=== PATIENT | male | born 1970 | race African-American/Black ===

== ENCOUNTER 2018-08-09 04:06 | Emergency (ER) | payer SELFPAY ==
[~2018-08-09] VITALS: Ht 182.9 cm; Wt 96.0 kg
[2018-08-09] MEDS ORDERED: FAMOTIDINE 20MG/2ML VIAL IV STA (06:35)
[2018-08-09] MEDS ORDERED: ONDANSETRON 4MG ODT PO STA (06:35)
[2018-08-09] MEDS ORDERED: KETOROLAC 30MG/ML VIAL IV STA (06:35)
[2018-08-09] MEDS ORDERED: SODIUM CHLORIDE 0.9% 1,000 ML IV ONE (06:35)
[2018-08-09 06:53] LABS: BASOPHILS % 0.6 % (0.0-2.0); EOSINOPHILS % 1.4 % (0.0-5.0); HEMATOCRIT. 44.2 % (42.0-52.0); HEMOGLOBIN. 14.9 g/dL (14.0-18.0); LYMPHOCYTES % 40.2 % (20.0-50.0); MEAN CORPUSCULAR HEMOGLOBIN 29.4 pg (28.0-32.0); MEAN CORPUSCULAR VOLUME 87.4 fL (80.0-94.0); MEAN PLATELET VOLUME 7.9 fl (7.4-10.4); MONOCYTES % 6.2 % (2.0-8.0); NEUTROPHILS % 51.6 % (40.0-76.0); PLATELET 240 x1000/uL (130-400); RED BLOOD CELL COUNT 5.06 mill/uL (4.7-6.1); RED CELL DISTRIBUTION WIDTH 14.2 % (11.6-14.6)
[2018-08-09 06:57] LABS: CHLORIDE 106 mEq/L (98-107)
[2018-08-09 06:58] LABS: PROTHROMBIN TIME 10.7 sec (9.6-11.0)
[2018-08-09 07:08] LABS: CLARITY URINE TURBID (CLEAR); COLOR URINE YELLOW (YELLOW); KETONES URINE TRACE (NEGATIVE); LEUKOCYTE ESTERASE URINE NEGATIVE (NEGATIVE); NITRITE URINE NEGATIVE (NEGATIVE); OCCULT BLOOD URINE NEGATIVE (NEGATIVE); PH URINE 5.5 (4.5-8.0); PROTEIN URINE NEGATIVE (NEGATIVE); SPECIFIC GRAVITY URINE 1.035 (1.005-1.030); UROBILINOGEN URINE 0.2 E.U./dL (0.2-1.0)
[2018-08-09 08:30] VITALS: BP 109/61
== END 2018-08-09 09:55 | disposition home or self-care (01) ==
LOC: ER 04:06
DX: K80.20 Calculus of gallbladder without cholecystitis without obstruction (principal); Z98.49 Cataract extraction status, unspecified eye
CPT/HCPCS: 36415; 76705; 80053; 81003; 83690; 85025; 85610; 96374; 96375; 99284; J1885; J3490; J7030; Q0162; Z7610